=== PATIENT | male | born 1940 | race Caucasian/White ===

== ENCOUNTER 2017-03-25 20:51 | Inpatient (IN) | payer MEDICARE, BC ==
--- NOTE | ~2017-03-25 | HP ---
History And Physical [place] [id number] [facility] [place]. [address] NAME: OSBALDO BEAR JR : 38 STATUS : ADM Bhupendra PAT#: [id number] AGE: 76 ADM/REG DATE : 03/25/17 MR#: [id number] REPORT SERV DATE: 03/26/17 DICTATED BY: TRISTAN DOMINGUEZ DATE: 03/26/17 REPORT STATUS : Draft TRANSCRIBED BY: MODL DATE: 03/26/17 DATE OF ADMISSION: 03/25/2017 CHIEF COMPLAINT: Rectal bleed. HISTORY OF PRESENT ILLNESS: The patient is a 76-year-old male, who reported that he had rectal bleeding yesterday afternoon. The patient reports that he had a scheduled colonoscopy with Dr. Bradley sometime this week. The patient denies any associated symptoms except for having a large amount of blood from his rectum. ALLERGIES: NO KNOWN DRUG ALLERGIES. CODE STATUS: DNR. MEDICATIONS: Home medications to include aspirin, Coreg, Plavix gabapentin, and oxycodone. PAST MEDICAL HISTORY: 1. Positive for myocardial infarction in 1997. 2. Cardiac stent most recent in 10/2016. 3. History of hypertension. 4. History of tobacco abuse. 5. History of right leg pain with chronic pain syndrome followed by pain management. 6. History of AVMs, was being followed by GI Dr. Bradley. 7. The patient ambulates with walker and cane. 8. Aortic abdominal aneurysm with repair and PVC. 9. Severe peripheral arterial disease. SURGICAL HISTORY: 1. Aortic aneurysm repair [place] [address] Canseco. 2. Status post coronary artery bypass grafting and in 10/2016 had arteriogram and aortogram with balloon treatment. 3. Had a bilateral intra-ocular lens implant. 4. Had right foot and right great toe amputation in 2014. 5. On 12/31/2015, right femoral to below-knee popliteal bypass with reverse saphenous and in 06/2016 angioplasty of the right femoral to popliteal bypass. 6. Had a skin cancer removed, 1 behind the ear and 1 on the right arm. FAMILY HISTORY: Has family history of skin cancer. The patient denies family history of diabetes and heart disease and stroke. SOCIAL HISTORY: The patient is . He retired from hospital management. He has been a smoker for 40 years, had quit at 1 time, but now he continues to smoke approximately half a pack per day. The patient denies any alcohol use or illicit drug use. History And Physical [address] [address] NAME: OSBALDO BEAR JR : 39 STATUS : ADM Bhupendra PAT#: [id number] AGE: 76 ADM/REG DATE : 03/25/17 MR#: [id number] REPORT SERV DATE: 03/26/17 DICTATED BY: TRISTAN DOMINGUEZ DATE: 03/26/17 REPORT STATUS : Draft TRANSCRIBED BY: TAMMY DATE: 03/26/17 REVIEW OF SYSTEMS: The patient denies any problem with hearing or swallowing. He denies any shortness of breath. He denies any chest pain, and denies any abdominal pain. Reported rectal bleed yesterday afternoon x1, has been following GI with scheduled colonoscopy this week. MUSCULOSKELETAL: Patient with history of arthritis mainly in the low back but history of chronic right leg pain and needs special shoes to walk and walks with a cane and walker and goes to pain management secondary to his chronic right leg pain. SKIN: History of skin cancer removal in the back of his ears as well as right arm. The patient denies any history of stroke. The patient has been using Plavix and aspirin. LAB WORK: On 03/25/2017, with WBC of 8.5, hemoglobin 8.8, hematocrit 27.1, and platelet of 297. INR 1.1, PT 14.5, and PTT of 31.0. Sodium 139, potassium 4.2, chloride 108, CO2 of 25, BUN 28, creatinine 1.58, glucose 128 and GFR 42. AST 9, bilirubin 0.3, total protein 7.1, ALT 14, albumin 3.6, and alkaline phosphate 79. Repeat H and H this morning is 8.1 and 24.9. PHYSICAL EXAMINATION: NEUROLOGIC: The patient is easily aroused from sleep and conversant. HEENT: Nonicteric bilaterally. Oral mucosa moist with good dentition. NECK: No JVD noted. CHEST: No deformity noted. Noted old sternal scar consistent with surgical history. LUNGS: Clear to auscultation bilaterally. No wheezing. CV: Regular rate and rhythm. Normal S1, S2. No murmurs noted. ABDOMEN: Soft, nontender. Bowel sounds hyperactive throughout. : Not assessed. EXTREMITIES: Noted generalized arthritic changes bilateral hands, joint, and feet. Noted peripheral IV in the right lower arm without redness. Good bilateral upper extremity strength. Bilateral lower extremity with trace edema. Specialty shoes in use. Sensitive to palpation on the right lower leg. Right lower leg with pain on range of motion. ASSESSMENT: 1. Lower GI bleed with history of AVM. 2. Acute blood loss anemia likely secondary to lower GI bleed. 3. Acute kidney injury, question chronic kidney disease, likely secondary to volume deficit. 4. Coronary artery disease, status post history of RI with CABG. 5. Hypertension, primary, controlled. 6. Peripheral arterial disease status post right femoral to popliteal bypass. 7. History of tobacco abuse. 8. Gait impairment secondary to right leg pain. 9. History of PVC. PLAN: 1. Appreciate GI consult. We reviewed orders. Patient currently being prepped for a.m. History And Physical [address] [place]. [address] NAME: OSBALDO BEARSAJAN DE SOUZA : 38 STATUS : ADM Bhupendra PAT#: [id number] AGE: 76 ADM/REG DATE : 03/25/17 MR#: [id number] REPORT SERV DATE: 03/26/17 DICTATED BY: TRISTAN DOMINGUEZ DATE: 03/26/17 REPORT STATUS : Draft TRANSCRIBED BY: TAMMY DATE: 03/26/17 scheduled colonoscopy. The patient is receiving 1 unit of packed red blood cell with soon to complete. Continue to monitor H and H q.6 hours x24 hours. A.m. labs to include CBC, BMP, a PT and INR. The patient is at risk for further worsening anemia/hypoxia. 2. We will continue current pain med regimen for history of chronic pain with Neurontin and Percocet. Aspirin and Coreg have been held since admission secondary to the patient's ongoing lower GI bleed. We will need to clear with GI prior to resuming both. 3. Continue Coreg 3.125 twice a day. The patient on clear liquids for now given pending colonoscopy in a.m. The patient also is currently on GI prep. 4. Address code status with the patient. The patient desires DNR. 5. Discuss plan of care plan with the patient and the patient agreed with current plan of care. POLST form completed and placed in chart. DICTATED BY: RADHA Pal/MODL Tristan Dominguez M.D. / [id number] CC: Tristan Dominguez M.D.
--- NOTE | ~2017-03-25 | CN ---
Consultation Report [facility] [address] [place]. [address] NAME: OSBALDO BUSTAMANTE JR : 38 STATUS : ADM Bhupendra PAT#: [id number] AGE: 76 ADM/REG DATE : 03/25/17 MR#: [id number] REPORT SERV DATE: 03/26/17 DICTATED BY: CHLOE DONOVAN DATE: 03/26/17 REPORT STATUS : Draft TRANSCRIBED BY: MODL DATE: 03/26/17 GI CONSULTATION DATE OF CONSULTATION: 03/26/2017 REASON FOR CONSULTATION: Evaluation and management of lower GI bleeding. HISTORY OF PRESENT ILLNESS: Mr. Bustamante is a pleasant 76-year-old male patient, known to Dr. Clif Singh, who presented on 03/25/2017 with a chief complaint of lower GI bleeding, weakness, fatigue. He states that, he has had recurrent lower GI bleeding since October of this year. He was seen by Dr. Singh in 10/2016, where he underwent EGD and colonoscopy for Hemoccult-positive stools with findings of colonic angioectasias as well as colon polyps that were removed. Polyps were tubular adenomatous type without high-grade dysplasia. He had an EGD which showed gastritis. Biopsies showed chemical gastritis. He was seen in the office in February for complaints of recurrent and continued lower GI bleeding. Him and niece states that, when he does have GI bleeding that is very large volume. He states this happened on Sunday. He became weak and fatigued. He is supposed to have an outpatient colonoscopy with Dr. Singh on 03/27/2017, but secondary to his continued GI bleeding, he came in for further evaluation. Hemoglobin in 09/2016 was noted to be 13.3. On admission today, his hemoglobin is 8.8. He complains of some exertional shortness of breath. No chest pain. No melena, only bright red blood. I have discussed with him, we will plan on prepping him today for colonoscopy tomorrow. I did discuss risks, benefits, alternatives, and complications with him to include, but not limited to risk of bleeding, perforation, infection, reaction to medication, as well as cardiac and pulmonary side effects. He is agreeable to proceed. PAST MEDICAL HISTORY: Positive for colonic angioectasias, peripheral vascular disease, coronary artery disease, gastritis, detached retina with intra-ocular lens implants, [place] in 1997, abdominal aortic aneurysm repair, cardiac stents, CABG, hypertension, status post amputation of the right great toe, kidney stones, anemia. SOCIAL HISTORY: Positive tobacco. Negative for alcohol. Negative for illicits. FAMILY HISTORY: Noncontributory from a GI standpoint. ALLERGIES: LISTED TO NOTHING. HOME MEDICATIONS: Aspirin, Coreg, Plavix, Neurontin, Percocet. REVIEW OF SYSTEMS: A 10-point review of systems has been obtained with pertinent positives being addressed in the history of present illness. PERTINENT LABORATORY DATA: Sodium 139, potassium 4.2, BUN is 38, creatinine 1.58. [place] Consultation Report [place] [id number] [facility] [place]. [address] NAME: OSBALDO BUSTAMANTE JR : 38 STATUS : ADM Bhupendra PAT#: [id number] AGE: 76 ADM/REG DATE : 03/25/17 MR#: [id number] REPORT SERV DATE: 03/26/17 DICTATED BY: CHLOE DONOVAN DATE: 03/26/17 REPORT STATUS : Draft TRANSCRIBED BY: TAMMY DATE: 03/26/17 count 8.5, hemoglobin 8.8, hematocrit 27.1, platelet count is 257. PHYSICAL EXAMINATION: VITAL SIGNS: Temperature is 98.7, pulse 65, respirations of 20, blood pressure is 139/86. NEURO: Reveals an alert, male, resting in bed with no focal deficits. GENERAL: Cooperative in no apparent distress. He is awake, alert, oriented x3. HEAD, EARS, EYES, NOSE, AND THROAT: Anicteric. He has mild conjunctival pallor. Pupils are equal, round, reactive to light and accommodation. Normocephalic, atraumatic. NECK: No JVD. No palpable nodes. Supple. LUNGS: Diminished throughout. CARDIOVASCULAR SYSTEM: Regular rate and rhythm. ABDOMEN: Soft, nondistended, nontender with active bowel sounds in all four quadrants. EXTREMITIES: No edema. Normal distal pulses. ASSESSMENT AND PLAN: 1. Recurrent lower gastrointestinal bleed with a history of arteriovenous malformations. 2. Peripheral arterial disease, on Plavix. History of gangrene of the right foot, status post right great toe amputation. 3. History of coronary artery disease, myocardial infarction. 4. Tobacco abuse. 5. Acute blood loss anemia. PLAN: 1. Hold Plavix. 2. Colonoscopy in the morning. The patient is to bring his outpatient Prepopik from home for bowel prep. 3. Transfuse 1 unit packed red blood cells for symptomatic anemia. 4. Follow H and H. Other recommendations to follow endoscopy. DAINA/TAMMY Chloe HILLARY Oneil / [id number] CC: William Dunn M.D.
--- NOTE | ~2017-03-25 | EGD ---
EGD REPORT [facility] [address] [place] [address] NAME: OSBALDO BEAR JR : 39 STATUS : ADM Bhupendra PAT#: [id number] AGE: 76 ADM/REG DATE : 03/25/17 MR#: [id number] REPORT SERV DATE: 03/27/17 DICTATED BY: ALLAN ACOSTA DATE: 03/27/17 REPORT STATUS : Draft TRANSCRIBED BY: [facility] DATE: 03/27/17 Endoscopy Center Patient Name: Osbaldo Bear Date of : 1940 Attending MD: ALLAN ACOSTA MD Procedure Date No Time: 03/27/2017 Procedure: Colonoscopy Indications: Hematochezia Referring MD: OFE COTA Medicines: Monitored Anesthesia Care Complications: No immediate complications. Estimated blood loss: Minimal. Procedure: After I obtained informed consent, the scope was passed under direct vision. Throughout the procedure, the patient's blood pressure, pulse, and oxygen saturations were monitored continuously. The CF [id number] was introduced through the anus and advanced to the cecum, identified by appendiceal orifice and ileocecal valve. The colonoscopy was technically difficult and complex due to poor bowel prep. The patient tolerated the procedure well. The quality of the bowel preparation was fair. Findings: The perianal and digital rectal examinations were normal. Pertinent negatives include normal sphincter tone and no palpable rectal lesions. Multiple medium-sized diffuse angiodysplastic lesions with stigmata of recent bleeding were found in the proximal ascending colon and in the cecum. Fulguration to ablate the lesion to prevent bleeding by argon plasma at 0.8 liters/minute and 20 rojas was successful. Estimated blood loss was minimal. A sessile polyp was found in the descending colon. The polyp was 4 mm in size. The polyp was removed with a cold biopsy forceps. Resection and retrieval were complete. Estimated blood loss was minimal. Three semi-sessile polyps were found in the sigmoid colon and in the descending colon. The polyps were 5 to 7 mm in size. These polyps were removed with a cold snare. Resection and retrieval were complete. Estimated blood loss was minimal. Multiple small-mouthed diverticula were found in the sigmoid colon. The exam was otherwise without abnormality on direct and retroflexion views. Impression: - Multiple recently bleeding colonic angiodysplastic lesions. Treated by fulguration. - One 4 mm polyp in the descending colon. Resected and EGD REPORT [address] [place]. [address] NAME: OSBALDO BEAR : 38 STATUS : ADM Bhupendra PAT#: [id number] AGE: 76 ADM/REG DATE : 03/25/17 MR#: [id number] REPORT SERV DATE: 03/27/17 DICTATED BY: ALLAN ACOSTA DATE: 03/27/17 REPORT STATUS : Draft TRANSCRIBED BY: [employer] DATE: 03/27/17 retrieved. - Three 5 to 7 mm polyps in the sigmoid colon and in the descending colon. Resected and retrieved. - Diverticulosis in the sigmoid colon. - The examination was otherwise normal on direct and retroflexion views. Recommendation: - Return patient to [facility] for observation. - Check hemoglobin q 12 hours until stable. - Soft diet today. Procedure Code(s): --- Professional --- 66693, 59, Colonoscopy, flexible, proximal to splenic flexure; with control of bleeding (eg, injection, bipolar cautery, unipolar cautery, laser, heater probe, stapler, plasma surgical forceps fabricator) 25927, Colonoscopy, flexible, proximal to splenic flexure; with removal of tumor(s), polyp(s), or other lesion(s) by snare technique 91728, 59, Colonoscopy, flexible, proximal to splenic flexure; with biopsy, single or multiple Diagnosis Code(s): --- Professional --- K55.21, Angiodysplasia of colon with hemorrhage D12.5, Benign neoplasm of sigmoid colon D12.4, Benign neoplasm of descending colon K57.30, Diverticulosis of large intestine without perforation or abscess without bleeding K92.1, Melena CPT copyright 2013 [employer]. All rights reserved. The codes documented in this report are preliminary and upon dark room attendant review may be revised to meet current compliance requirements. Allan Acosta MD ALLAN ACOSTA MD 03/27/2017 8:32 AM This report has been signed electronically. Number of Addenda: 0 Note Initiated On: 03/27/2017 7:22 AM Scope Withdrawal Time 0 hours 42 minutes 3 seconds [address] [place] [address]
[~2017-03-25 20:51] MED LIST: ALTA2.5 PO; ASAB PO; COREG3 PO; COREG6 PO; CYMBALTA30 PO; NEUR300 PO; OPANA ER10 MG PO; PERCOCET 7.5/321 TAB PO; PLAVIX PO; PRIN10 PO; PRIN5 PO
[2017-03-25 21:23] LABS: BASOPHILS 0.2 %; BASOPHILS ABSOLUTE 0.02 10/3/uL (0.0-0.16); EOSINOPHILS 6.8 %; EOSINOPHILS ABSOLUTE 0.58 10/3/uL (0.0-0.53); ER CBC TAT 0 Hrs 05 Mins; IMMATURE GRANULOCYTES 0.2 %; IMMATURE GRANULOCYTES ABSOLUTE 0.02 10/3/uL (0.0-0.11); LYMPHOCYTES 13.5 %; LYMPHOCYTES ABSOLUTE 1.15 10/3/uL (0.67-4.30); MEAN CORPUS HGB CONC 32.5 g/dL (32.0-36.0); MEAN CORPUSCULAR HEMOGLOB 29.4 pg (26.0-34.0); MEAN PLATELET VOLUME 9.7 fL (9.2-13.0); NEUTROPHILS 72.3 %; NEUTROPHILS ABSOLUTE 6.15 10/3/uL (2.02-8.40); RBC DISTRIBUTION WIDTH 13.3 % (12.0-16.0); WHITE BLOOD CELLS 8.5 10/3/uL (4.5-10.5)
[2017-03-25 21:24] LABS: HEMATOCRIT 27.1 % (40.0-51.0); HEMOGLOBIN 8.8 g/dL (13.6-17.8); MANUAL DIFF NO %; MEAN CORPUSCULAR VOLUME 90.6 fL (80-100); PLATELET COUNT 257 10/3/uL (150-400); RED CELL COUNT 2.99 10/6/uL (4.7-6.1)
[2017-03-25 21:35] LABS: INTERNATIONAL NORMAL RATI 1.1 UNITS (-); PROTIME (NOT ORD) 14.5 SEC (12.0-14.5)
[2017-03-25 21:36] LABS: ALBUMIN 3.6 G/DL (3.5-5.0); ALKALINE PHOSPHATASE 79 U/L (45-117); CALCIUM, SERUM 8.7 MG/DL (8.5-10.4); CHLORIDE, SERUM 108 MMOL/L (96-112); CO2 (CARBON DIOXIDE) 25 MMOL/L (24-34); CREATININE 1.58 MG/DL (0.70-1.30); GFR AFRICAN AMERICAN 48 ML/MIN (>=60); GFR NON AFRICAN AMERICAN 42 ML/MIN (>=60); GLOBULIN 3.5 G/DL (2.5-4.1); POTASSIUM, SERUM 4.2 MMOL/L (3.5-5.3); SGOT(AST) 9 U/L (5-40); SGPT(ALT) 14 U/L (5-65); SODIUM, SERUM 139 MMOL/L (135-148); TOTAL BILIRUBIN 0.3 MG/DL (0-1.2); TOTAL PROTEIN 7.1 G/DL (6.0-8.5)
[2017-03-25 21:37] LABS: BUN (BLOOD UREA NITROGEN) 38 MG/DL (6-23); GLUCOSE, SERUM 127 MG/DL (60-99)
[2017-03-26 10:19] LABS: HEMATOCRIT 24.9 % (40.0-51.0); HEMOGLOBIN 8.1 g/dL (13.6-17.8)
[2017-03-26 16:46] LABS: HEMATOCRIT 23.1 % (40.0-51.0); HEMOGLOBIN 7.7 g/dL (13.6-17.8)
[2017-03-27 00:01] LABS: HEMOGLOBIN 8.1 g/dL (13.6-17.8)
[2017-03-27 03:22] LABS: BASOPHILS ABSOLUTE 0.02 10/3/uL (0.0-0.16)
[2017-03-27 03:26] LABS: MANUAL DIFF NO %
[2017-03-27 03:32] LABS: INTERNATIONAL NORMAL RATI 1.3 UNITS (-); PROTIME (NOT ORD) 16.5 SEC (12.0-14.5)
[2017-03-27 04:47] LABS: CALCIUM, SERUM 8.4 MG/DL (8.5-10.4); CHLORIDE, SERUM 112 MMOL/L (96-112); CO2 (CARBON DIOXIDE) 25 MMOL/L (24-34); POTASSIUM, SERUM 3.8 MMOL/L (3.5-5.3); SODIUM, SERUM 144 MMOL/L (135-148)
[2017-03-27 04:49] LABS: BUN (BLOOD UREA NITROGEN) 19 MG/DL (6-23); CREATININE 0.92 MG/DL (0.70-1.30); GFR AFRICAN AMERICAN 93 ML/MIN (>=60); GFR NON AFRICAN AMERICAN 80 ML/MIN (>=60); GLUCOSE, SERUM 97 MG/DL (60-99)
[2017-03-27 06:05] LABS: RED CELL COUNT 2.62 10/6/uL (4.7-6.1); WHITE BLOOD CELLS 5.3 10/3/uL (4.5-10.5)
[2017-03-27 06:06] LABS: EOSINOPHILS 13.1 %; HEMATOCRIT 23.7 % (40.0-51.0); HEMOGLOBIN 7.7 g/dL (13.6-17.8); LYMPHOCYTES 25.1 %; MEAN CORPUS HGB CONC 32.5 g/dL (32.0-36.0); MEAN CORPUSCULAR HEMOGLOB 29.4 pg (26.0-34.0); MEAN CORPUSCULAR VOLUME 90.5 fL (80-100); MONOCYTES 9.7 %; NEUTROPHILS 51.7 %; PLATELET COUNT 187 10/3/uL (150-400); RBC DISTRIBUTION WIDTH 13.5 % (12.0-16.0)
[2017-03-27 06:07] LABS: BASOPHILS 0.4 %
[2017-03-27 06:09] LABS: LYMPHOCYTES ABSOLUTE 1.34 10/3/uL (0.67-4.30); MONOCYTES ABSOLUTE 0.52 10/3/uL (0.21-1.20); NEUTROPHILS ABSOLUTE 2.76 10/3/uL (2.02-8.40)
[2017-03-27 14:24] LABS: HEMOGLOBIN 9.2 g/dL (13.6-17.8)
[2017-03-27 21:29] LABS: HEMATOCRIT 25.3 % (40.0-51.0); HEMOGLOBIN 8.5 g/dL (13.6-17.8)
[2017-03-28 09:48] LABS: HEMATOCRIT 26.5 % (40.0-51.0); HEMOGLOBIN 8.9 g/dL (13.6-17.8)
[2017-03-28 10:01] LABS: CALCIUM, SERUM 8.9 MG/DL (8.5-10.4); CHLORIDE, SERUM 112 MMOL/L (96-112); CO2 (CARBON DIOXIDE) 24 MMOL/L (24-34); CREATININE 0.97 MG/DL (0.70-1.30); GFR AFRICAN AMERICAN 87 ML/MIN (>=60); GFR NON AFRICAN AMERICAN 75 ML/MIN (>=60); POTASSIUM, SERUM 3.8 MMOL/L (3.5-5.3); SODIUM, SERUM 143 MMOL/L (135-148)
[2017-03-28 10:02] LABS: BUN (BLOOD UREA NITROGEN) 14 MG/DL (6-23); GLUCOSE, SERUM 76 MG/DL (60-99)
[2017-03-28] MEDS ORDERED: PROTONIX PO (11:47)
== END 2017-03-28 13:30 | disposition home or self-care (01) | DRG 378 ==
LOC: ER 20:51 → 6NO 21:00
PROVIDERS: Emergency Medicine; Family Medicine; Internal Medicine Gastroenterology; Nurse Practitioner Family
PROC: 0D5K8ZZ Destruction of Ascending Colon, Via Natural or Artificial Opening Endoscopic (ICD-10-PCS; 2017-03-27)
PROC: 30233N1 Transfusion of Nonautologous Red Blood Cells into Peripheral Vein, Percutaneous Approach (ICD-10-PCS; 2017-03-27)
PROC: 0DBM8ZX Excision of Descending Colon, Via Natural or Artificial Opening Endoscopic, Diagnostic (ICD-10-PCS; principal; 2017-03-27 07:00)
PROC: 0DBN8ZX Excision of Sigmoid Colon, Via Natural or Artificial Opening Endoscopic, Diagnostic (ICD-10-PCS; 2017-03-27 07:00)
PROC: 0D5H8ZZ Destruction of Cecum, Via Natural or Artificial Opening Endoscopic (ICD-10-PCS; 2017-03-27 07:00)
DX: K55.21 Angiodysplasia of colon with hemorrhage (principal); D62 Acute posthemorrhagic anemia; N17.9 Acute kidney failure, unspecified; D12.5 Benign neoplasm of sigmoid colon; D12.4 Benign neoplasm of descending colon; K57.30 Diverticulosis of large intestine without perforation or abscess without bleeding; I73.9 Peripheral vascular disease, unspecified; I71.4 Abdominal aortic aneurysm, without rupture; F17.210 Nicotine dependence, cigarettes, uncomplicated; K29.70 Gastritis, unspecified, without bleeding; I25.10 Atherosclerotic heart disease of native coronary artery without angina pectoris; I25.2 Old myocardial infarction; I12.9 Hypertensive chronic kidney disease with stage 1 through stage 4 chronic kidney disease, or unspecified chronic kidney disease; N18.9 Chronic kidney disease, unspecified; R26.9 Unspecified abnormalities of gait and mobility; Z87.442 Personal history of urinary calculi; Z95.5 Presence of coronary angioplasty implant and graft; Z95.1 Presence of aortocoronary bypass graft; Z89.411 Acquired absence of right great toe; Z79.82 Long term (current) use of aspirin; Z79.02 Long term (current) use of antithrombotics/antiplatelets; Z95.828 Presence of other vascular implants and grafts
CPT/HCPCS: 36415; 80048; 80053; 85014; 85018; 85025; 85610; 85730; 86850; 86900; 86901; 86920; 88305; 93005; 99284; A9270-GY; P9016